=== PATIENT | male | born 1950 | race Caucasian/White ===

== ENCOUNTER 2021-06-19 08:09 | Day surgery (SDC) | payer MEDICARE ==
[~2021-06-19] VITALS: Ht 182.9 cm; Wt 113.0 kg
[2021-06-19] VITALS (19 sets, daily range): BP systolic 107–154; BP diastolic 59–90
[2021-06-19] MEDS: potassium cl 20mEq in 1/2 NS 1,000 ML IV SCH ×3 (06:35→16:33)
[2021-06-19] MEDS: levoTHYROXINE 100mcg tablet PO SCH (07:00)
[2021-06-19] MEDS: levoTHYROXINE 175mcg tablet PO SCH (07:00)
[2021-06-19] MEDS: budesonide 0.5mg/2ml UD nebule IH SCH ×2 (08:00→20:57)
[~2021-06-19 08:09] MED LIST: ADV50100 INH; ALBU8.5H17 INH; APIX5TAB3 PO; DOCUMENT DATE & TIME OF BETA-BLOCKER PO ONE; FURO20TA4 PO; HYDROcodone/acetaminophen 10/325mg tab PO PRN; HYDROmorphone 1 mg/ml syringe IV PRN; HYDROmorphone inj. 0.5 MG/0.5 ML DISP.SYRIN IV PRN; LEVO200T PO; LIOT25TA12 PO; METO25TA6 PO; acetaminophen 325mg tablet PO ONE; acetaminophen 325mg tablet PO PRN; albuterol 2.5 MG/3 ML nebule NEB ONE; apixaban 5mg tablet PO SCH; bisacodyl 10mg suppository rectal RC PRN; cefazolin/dext.iso 2gm/100ml IV ONE; celeCOXIB 100mg capsule PO ONE; diphenhydrAMINE 25mg capsule PO PRN; famotidine 20mg tablet PO ONE; furosemide 20MG tablet PO SCH; gabapentin 300mg capsule PO ONE; magnesium hydroxide 30ml (MOM) UD suspension PO PRN; metoclopramide 5 mg/ml inj IV ONE; metoprolol tartrate 25mg tablet PO SCH; ondansetron/PF 4mg/2ml inj IV PRN; oxyCODONE SR 10mg (sust. release) tab -2 tabs (20mg) PO ONE; ringers solution, lacted 1,000 ML IV SCH; tranexamic acid 1gm/0.7% sal. 100 ML IV ONE; vancomycin 1,500 MG in NS 300ml IV soln IV ONE
[2021-06-19] MEDS ORDERED: ROPIVAcaine 0.5% (5mg/ml) 30ml vial ONE (09:50)
[2021-06-19] MEDS ORDERED: vancomycin 1,000mg inj ONE (09:51)
[2021-06-19] MEDS ORDERED: ketorolac trometh. 30mg/ml inj. ONE (09:51)
[2021-06-19] MEDS ORDERED: epiNEPHrine 1 mg/ml inj ONE (09:51)
[2021-06-19] MEDS ORDERED: cloNIDine hcl/PF 100mcg/ml inj ONE (09:51)
[2021-06-19] MEDS ORDERED: albuterol 2.5 MG/3 ML nebule NEB PRN (10:05)
[2021-06-19 10:11] LABS: BASOPHILS % (AUTO) 0.7 % (0-1); EOSINOPHILS # (AUTO) 0.1 X10'3 (0-0.9); EOSINOPHILS % (AUTO) 1.4 % (0-6); LYMPHOCYTES % (AUTO) 20.2 % (21-51); MEAN CORPUSCULAR HEMOGLOBIN 33.9 PG (27.0-31.0); MEAN CORPUSCULAR HGB CONC 33.7 g/dL (33.0-36.5); MEAN CORPUSCULAR VOLUME 100.6 FL (78-98); MEAN PLATELET VOLUME 7.7 FL (7.4-10.4); MONOCYTES # (AUTO) 0.5 X10'3 (0-0.9); MONOCYTES % (AUTO) 10.4 % (2-12); NEUTROPHILS # (AUTO) 3.5 X10'3 (1.8-7.7); NEUTROPHILS % (AUTO) 67.3 % (42-75); PRE OP HEMATOCRIT 40.5 % (42.0-52.0); PRE OP HEMOGLOBIN 13.7 g/dL (14.0-17.9); PRE OP PLATELET COUNT 225 X10'3 (140-440); RED BLOOD COUNT 4.03 X10'6 (4.70-6.10)
[2021-06-19] MEDS ORDERED: MIDAZolam 1mg/ml 10ml vial ONE (10:23)
[2021-06-19] MEDS ORDERED: fentaNYL/PF 50MCG/1 ML 2ML syringe ONE (10:23)
[2021-06-19] MEDS ORDERED: propofol inj 20 ML IV ONE ×2 (10:25)
[2021-06-19] MEDS ORDERED: ondansetron/PF 4mg/2ml inj IV PRN (11:25)
[2021-06-19] MEDS ORDERED: ringers solution, lacted 1,000 ML IV SCH (11:25)
[2021-06-19] MEDS ORDERED: meperidine/PF 25mg/ml syringe IV PRN ×3 (11:25)
[2021-06-19] MEDS ORDERED: morphine 4 MG/ML inj SYRINge IV PRN (11:25)
[2021-06-19] MEDS ORDERED: proCHLORperazine 10 MG/2 ml inj IV PRN (11:25)
[2021-06-19] MEDS ORDERED: morphine 2 MG/ML inj. syringe IV PRN (11:25)
--- NOTE | 2021-06-19 12:00 | NUR ---
Received from OR via , accompanied by Anesthesiologist and report given by Anesthesiolgist. PATIENT A&OX4, DENIES PAIN, V/S WNL, SCD ON , PIV 20G RUE,DRESSING TO LEFT HIP CDI WITH IMMOBILIZER LLE. SENSATIONS T10
--- NOTE | 2021-06-19 13:10 | NUR ---
PATIENT A&OX4, DENIES PAIN, V/S WNL, SCD ON , PIV 20G RUE,DRESSING TO LEFT HIP CDI WITH IMMOBILIZER LLE. SENSATIONS T12, TAKEN TO 348A WITH ALL BELONGINGS ANMD HOOKED UP TO MONITORS IN ROOM AND REPORT GIVEN TO ALISON DIGGS WHO HAS TAKEN OVER PATIENT CARE
--- NOTE | 2021-06-19 13:15 | NUR ---
Patient in room [facility] 348. I have received report from CATERINA Banks and had the opportunity to ask questions and assume patient care. Arrived via bed, low, call light in reach. Spouse at bedside. Discussed POC pt verbalizes understanding.
[2021-06-19] MEDS ORDERED: tranexamic acid 1gm/0.7% sal. 100 ML IV ONE (15:00)
[2021-06-19] MEDS: cefazolin/dext.iso 2gm/100ml 100 ML IV SCH (16:33)
[2021-06-19] MEDS: HYDROcodone/acetaminophen 10/325mg tab PO PRN ×2 (16:51→20:57)
[2021-06-19] MEDS: multivitamins, therapeutics tablet PO SCH (18:00)
[2021-06-19] MEDS: LIOthyronine 25mcg tablet PO SCH (18:00)
--- NOTE | 2021-06-19 18:30 | NUR ---
Problems reprioritized. Patient report given, questions answered & plan of care reviewed with CATERINA Ortiz.
--- NOTE | 2021-06-19 19:43 | NUR ---
Patient in room [facility] 348. I have received report from CATERINA ROSAS and had the opportunity to ask questions and assume patient care.
[2021-06-19] MEDS: ascorbic acid 500mg tablet PO SCH (20:53)
[2021-06-19] MEDS: metoprolol tartrate 25mg tablet PO SCH (20:56)
[2021-06-19] MEDS: apixaban 5mg tablet PO SCH (20:57)
[2021-06-19] MEDS: gabapentin 300mg capsule PO SCH (20:59)
[2021-06-19] MEDS ORDERED: sennosides 8.6mg tablet PO SCH (21:00)
[2021-06-20] VITALS: BP 124/63
[2021-06-20] MEDS: cefazolin/dext.iso 2gm/100ml 100 ML IV SCH ×3 (00:34→10:22)
[2021-06-20] MEDS: potassium cl 20mEq in 1/2 NS 1,000 ML IV SCH (00:44)
[2021-06-20 04:00] VITALS: BP 132/74
--- NOTE | 2021-06-20 06:17 | NUR ---
Patient in room [facility] 348. I have received report from Mer DIGGS and had the opportunity to ask questions and assume patient care.
[2021-06-20 06:30] LABS: BASOPHILS % (AUTO) 0.3 % (0-1); EOSINOPHILS # (AUTO) 0.1 X10'3 (0-0.9); HEMATOCRIT 35.7 % (42.0-52.0); HEMOGLOBIN 12.1 g/dl (14.0-17.9); LYMPHOCYTES # (AUTO) 0.9 X10'3 (1.1-4.8); LYMPHOCYTES % (AUTO) 14.7 % (21-51); MEAN CORPUSCULAR HEMOGLOBIN 34.4 PG (27.0-31.0); MEAN CORPUSCULAR VOLUME 101.1 FL (78-98); MEAN PLATELET VOLUME 7.8 FL (7.4-10.4); MONOCYTES # (AUTO) 0.7 X10'3 (0-0.9); NEUTROPHILS # (AUTO) 4.2 X10'3 (1.8-7.7); PLATELET COUNT 201 X10'3 (140-440); RED BLOOD COUNT 3.54 X10'6 (4.70-6.10); RED CELL DISTRIBUTION WIDTH 12.9 % (11.5-14.5); WHITE BLOOD COUNT 5.9 X10'3 (4.5-11.0)
[2021-06-20 06:39] LABS: ANION GAP 3 (8-16); CHLORIDE 103 MMOL/L (99-107); POTASSIUM 4.3 MMOL/L (3.5-5.1); SODIUM 135 MMOL/L (135-145); TOTAL CARBON DIOXIDE 29.3 MMOL/L (24-32)
[2021-06-20] MEDS: apixaban 5mg tablet PO SCH (07:31)
[2021-06-20] MEDS: ascorbic acid 500mg tablet PO SCH (07:31)
[2021-06-20] MEDS: gabapentin 300mg capsule PO SCH ×2 (07:31→13:00)
[2021-06-20] MEDS: multivitamins, therapeutics tablet PO SCH (07:31)
[2021-06-20] MEDS: LIOthyronine 25mcg tablet PO SCH (07:31)
[2021-06-20] MEDS: levoTHYROXINE 175mcg tablet PO SCH (07:31)
[2021-06-20] MEDS: levoTHYROXINE 100mcg tablet PO SCH (07:31)
[2021-06-20] MEDS: metoprolol tartrate 25mg tablet PO SCH (07:32)
[2021-06-20 08:00] VITALS: BP 119/60
[2021-06-20] MEDS: budesonide 0.5mg/2ml UD nebule IH SCH (08:00)
[2021-06-20] MEDS: HYDROcodone/acetaminophen 10/325mg tab PO PRN (09:36)
[2021-06-20 11:00] VITALS: BP 174/78
--- NOTE | 2021-06-20 14:13 | NUR ---
PT IS STABLE FOR DISCHARGE, IV WAS DC, DISCHARGE INFO WAS GONE OVER AND NO FURTHER QUESTIONS. PT WAS WHEELED DOWN IN A WHEELCHAIR, WAS PICKED UP BY SPOUSE, LEFT IN A PRIVATE VEHICLE, AND WILL FOLLOW UP WITH DR WALDEN IN 2 WEEKS.
--- NOTE | 2021-06-20 14:16 | NUR ---
PT REFUSED THIER PICCO DRESSING CHANGE. THE PT JUST WANTS TO GO HOME AND REFUSED.
[2021-06-20] MEDS ORDERED: furosemide 20MG tablet PO SCH (18:00)
[2021-06-20] MEDS ORDERED: celeCOXIB 100mg capsule PO SCH (20:00)
== END 2021-06-20 14:29 | disposition home or self-care (01) ==
LOC: PAS 08:09 → SUR 3N 08:10 → PAS 06-20 14:29
PROVIDERS: ATTEND Orthopaedic Surgery
DX: M16.12 Unilateral primary osteoarthritis, left hip (principal); M19.011 Primary osteoarthritis, right shoulder; M19.012 Primary osteoarthritis, left shoulder; J44.9 Chronic obstructive pulmonary disease, unspecified; I10 Essential (primary) hypertension; E66.9 Obesity, unspecified; Z68.33 Body mass index [BMI] 33.0-33.9, adult; Z98.890 Other specified postprocedural states; Z96.611 Presence of right artificial shoulder joint; Z79.899 Other long term (current) drug therapy; Z87.891 Personal history of nicotine dependence; Z72.89 Other problems related to lifestyle; Z86.718 Personal history of other venous thrombosis and embolism; Z79.01 Long term (current) use of anticoagulants
CPT/HCPCS: 27130; 36415; 72170; 80051; 82948; 85025; 86885; 86900; 86901; 86920; 94640; 94760; 97110; 97116; 97161; 97530; C1776; J0171; J0735; J1170; J1885; J2250; J2704; J2765; J3010; J3370; J7040; J7120; Z7506; Z7508; Z7512; A7000; G0378; J2795; J3480; J7626

== ENCOUNTER 2023-07-16 05:29 | Day surgery (SDC) | payer MEDICARE ==
[2023-07-09 15:11] LABS: EOSINOPHILS # (AUTO) 0.1 X10'3 (0-0.9); LYMPHOCYTES # (AUTO) 1.3 X10'3 (1.1-4.8); PRE OP HEMOGLOBIN 14.3 g/dL (14.0-17.9)
[2023-07-09 15:13] LABS: BASOPHILS % (AUTO) 0.2 % (0-1); EOSINOPHILS % (AUTO) 1.9 % (0-6); LYMPHOCYTES % (AUTO) 21.2 % (21-51); MEAN CORPUSCULAR HEMOGLOBIN 33.9 PG (27.0-31.0); MEAN CORPUSCULAR HGB CONC 33.5 g/dL (33.0-36.5); MEAN CORPUSCULAR VOLUME 101.4 FL (78-98); MEAN PLATELET VOLUME 8.4 FL (7.4-10.4); MONOCYTES # (AUTO) 0.6 X10'3 (0-0.9); MONOCYTES % (AUTO) 9.2 % (2-12); NEUTROPHILS # (AUTO) 4.1 X10'3 (1.8-7.7); NEUTROPHILS % (AUTO) 67.5 % (42-75); PRE OP HEMATOCRIT 42.8 % (42.0-52.0); PRE OP PLATELET COUNT 233 X10'3 (140-440); RED BLOOD COUNT 4.23 X10'6 (4.70-6.10); RED CELL DISTRIBUTION WIDTH 12.9 % (11.5-14.5)
[2023-07-09 15:25] LABS: BILIRUBIN,URINE NEGATIVE (Neg); CLARITY,URINE CLEAR (Clear); COLOR,URINE YELLOW (Yellow); GLUCOSE, URINE NEGATIVE (Neg); KETONES,URINE NEGATIVE (Neg); LEUKOCYTE ESTERASE ,URINE NEGATIVE (Neg); NITRITES, URINE NEGATIVE (Neg); OCCULT BLOOD,URINE NEGATIVE (Neg); PROTEIN,URINE NEGATIVE (Neg); UROBILINOGEN,URINE 0.2 E.U/dL (0.2-1.0)
[2023-07-09 15:26] LABS: ALBUMIN 3.2 G/DL (3.4-5.0); ALBUMIN/GLOBULIN RATIO 0.9 (1.1-1.5); ALKALINE PHOSPHATASE 66 IU/L (46-116); BLOOD UREA NITROGEN 16 MG/DL (7-18); BUN/CREATININE RATIO 15.4 (10.0-20.0); CALCIUM 8.6 MG/DL (8.5-10.1); CHLORIDE 107 MMOL/L (99-107); CREATININE 1.04 MG/DL (0.60-1.10); PRE OP ALT 38 U/L (30-65); PRE OP ANION GAP 4 (8-16); PRE OP AST 26 U/L (10-37); PRE OP BILIRUB, TOTAL 0.4 MG/DL (0.0-1.0); PRE OP GLUCOSE 106 MG/DL (70-104); PRE OP POTASSIUM 4.2 MMOL/L (3.4-5.1); PRE OP SODIUM 138 MMOL/L (135-145); TOTAL CARBON DIOXIDE 27.1 MMOL/L (24-32); TOTAL PROTEIN 6.7 G/DL (6.4-8.2); eGFR 71 ML/MIN
[2023-07-09 15:32] LABS: UA COLLECTION TYPE CLN CATCH MIDSTREAM
[2023-07-16] VITALS (10 sets, daily range): BP systolic 125–157; BP diastolic 75–95; PULSE 74–92; RESP 13–16; TEMP 97.5; O2SAT 90–98
[~2023-07-16] VITALS: Ht 182.9 cm; Wt 116.0 kg
[~2023-07-16 05:29] MED LIST changes: -ADV50100 INH; +ADV50250 PO; -DOCUMENT DATE & TIME OF BETA-BLOCKER PO ONE; +FLO0.4C PO; -FURO20TA4 PO; +FURO40TA4 PO; -HYDROcodone/acetaminophen 10/325mg tab PO PRN; -HYDROmorphone 1 mg/ml syringe IV PRN; -HYDROmorphone inj. 0.5 MG/0.5 ML DISP.SYRIN IV PRN; -LIOT25TA12 PO; +LIOT5TAB10 PO; +NYST15CR36 TOP; +ONDA8TAB13 PO; +OXYC1TAB17 PO; +POTA-192 PO; +ROSU10TA28 PO; +ZOLP10TA PO; -acetaminophen 325mg tablet PO ONE; -acetaminophen 325mg tablet PO PRN; -albuterol 2.5 MG/3 ML nebule NEB ONE; -apixaban 5mg tablet PO SCH; -bisacodyl 10mg suppository rectal RC PRN; -cefazolin/dext.iso 2gm/100ml IV ONE; -celeCOXIB 100mg capsule PO ONE; -diphenhydrAMINE 25mg capsule PO PRN; -famotidine 20mg tablet PO ONE; -furosemide 20MG tablet PO SCH; -gabapentin 300mg capsule PO ONE; -magnesium hydroxide 30ml (MOM) UD suspension PO PRN; -metoclopramide 5 mg/ml inj IV ONE; -metoprolol tartrate 25mg tablet PO SCH; -ondansetron/PF 4mg/2ml inj IV PRN; -oxyCODONE SR 10mg (sust. release) tab -2 tabs (20mg) PO ONE; -tranexamic acid 1gm/0.7% sal. 100 ML IV ONE; -vancomycin 1,500 MG in NS 300ml IV soln IV ONE
[2023-07-16] MEDS ORDERED: ceFAZolin inj. 3,000 MG in normal saline 100ml IV soln 100 ML IV ONE (05:30)
[2023-07-16] MEDS ORDERED: famotidine 20mg tablet PO ONE (05:30)
[2023-07-16] MEDS ORDERED: BUPIVAcaine/PF 2.5 mg/ml (0.25%) 30ml vial ONE (07:14)
[2023-07-16] MEDS ORDERED: BUPIVACAINE liposomal/PF 13.3 MG/ML vial IM ONE (07:23)
[2023-07-16] MEDS ORDERED: BUPIVAcaine/PF 2.5mg/ml (0.25%) 10ml vial ONE (07:23)
[2023-07-16] MEDS ORDERED: fentaNYL/PF 50MCG/1 ML 2ML syringe ONE (07:27)
[2023-07-16] MEDS ORDERED: sevoflurane 250ml liquid IH ONE (07:27)
[2023-07-16] MEDS ORDERED: propofol inj 20 ML IV ONE (07:28)
[2023-07-16] MEDS ORDERED: midazolam 1 mg/ML 2ml injection ONE (07:28)
[2023-07-16] MEDS ORDERED: BUPIVAcaine/PF 2.5 mg/ml (0.25%) 30ml vial IJ ONE (08:14)
[2023-07-16] MEDS ORDERED: rocuronium 10mg/ml inj IV ONE (08:27)
[2023-07-16] MEDS ORDERED: dexamethasone sod phosphate 4mg/ml inj. ONE (08:27)
[2023-07-16] MEDS ORDERED: acetaminophen 1,000mg/100ml IV 100 ML IV ONE (08:27)
[2023-07-16] MEDS ORDERED: ondansetron/PF 4mg/2ml inj ONE (08:27)
[2023-07-16] MEDS ORDERED: sugammadex 200mg/2ml injection IV ONE (08:30)
[2023-07-16] MEDS ORDERED: morphine 2 MG/ML inj. syringe IV PRN (08:45)
[2023-07-16] MEDS ORDERED: ondansetron/PF 4mg/2ml inj IV PRN (08:45)
[2023-07-16] MEDS ORDERED: morphine 4 MG/ML inj SYRINge IV PRN (08:45)
[2023-07-16] MEDS ORDERED: ringers solution, lacted 1,000 ML IV SCH (08:45)
[2023-07-16] MEDS ORDERED: proCHLORperazine 10 MG/2 ml inj IV PRN (08:45)
[2023-07-16] MEDS ORDERED: meperidine/PF 25mg/ml syringe IV PRN ×2 (08:45)
--- NOTE | 2023-07-16 09:00 | NUR ---
Received from OR via , accompanied by Anesthesiologist and report given by Anesthesiolgist. PATIENT A&OX4, C/O OF PAIN SEE EMAR, V/S STABLE, SCD ON, 20G RUE, LAP SITES TO ABDOMEN CDI WITH ABD BINDER
[2023-07-16] MEDS: meperidine/PF 25mg/ml syringe IV PRN ×2 (09:06→09:20)
[2023-07-16] MEDS ORDERED: ketorolac trometh. 30mg/ml inj. IV ONE (09:10)
[2023-07-16] MEDS ORDERED: ketorolac tromethamine 15mg/ml inj. IV ONE (09:25)
[2023-07-16] MEDS ORDERED: oxyCODONE/APAP 5-325mg tablet PO ONE (09:35)
--- NOTE | 2023-07-16 10:10 | NUR ---
PATIENT A&OX4, C/O OF PAIN AT TIMES SEE EMAR, V/S STABLE, SCD OFF, 20G RUE D/C, LAP SITES TO ABDOMEN CDI WITH ABD BINDER. I HAVE REVIEWED D/C INSTRUCTIONS WITH PATIENT AND FAMILY AND THEY HAVE VERBALIZED UNDERSTANDING. PATIENT D/C HOME WITH ALL BELOINGINGS AND FAMILY GAVE TRANSPORT HOME.
== END 2023-07-16 10:10 | disposition home or self-care (01) ==
LOC: PAS 05:29
PROVIDERS: ATTEND Surgery
DX: K42.9 Umbilical hernia without obstruction or gangrene (principal); Z79.01 Long term (current) use of anticoagulants; Z79.899 Other long term (current) drug therapy; Z88.8 Allergy status to other drugs, medicaments and biological substances; Z98.890 Other specified postprocedural states
CPT/HCPCS: 36415; 49593; 71046; 80053; 81003; 82948; 85025; C1781; C9290; J0131; J0690; J1100; J1885; J2175; J2250; J2405; J2704; J3010; J3490; J7030; J7120; Z7506; Z7508; Z7512; A4615; A4618; A7000

== ENCOUNTER 2025-04-28 11:39 | Outpatient (CLI) | payer MEDICARE ==
[~2025-04-28 11:39] MED LIST changes: -FLO0.4C PO; +NYST15CR TOP; -NYST15CR36 TOP; +ONDA-245 PO; -ONDA8TAB13 PO; -ROSU10TA28 PO; +ROSU10TA72 PO; +TAMS-55 PO; +ZOLP-679 PO; -ZOLP10TA PO; -ringers solution, lacted 1,000 ML IV SCH
--- NOTE | 2025-04-28 14:30 | RADIOLOGY REPORT ---
EXAM: DI FOOT, COMPLETE (3VW MIN) CLINICAL INDICATION: WEIGHT BEARING PAIN TECHNIQUE: DI FOOT, COMPLETE (3VW MIN) Comparison: None FINDINGS/IMPRESSION: There is no evidence of acute fracture or dislocation. Diffuse soft tissue swelling. The alignment is anatomical. There is no radiopaque foreign body.
== END 2025-04-28 23:59 | disposition home or self-care (01) ==
LOC: RAD 11:39
PROVIDERS: ATTEND Podiatrist Foot & Ankle Surgery
DX: M79.672 Pain in left foot (principal); M79.89 Other specified soft tissue disorders
CPT/HCPCS: 73630